=== PATIENT | female | born 1990 | race Hispanic/Latino ===

== ENCOUNTER 2019-05-01 22:51 | Emergency (ER) | payer MEDICAID, OTHER ==
[2019-05-01] MEDS ORDERED: SODIUM CHLORIDE 0.9% 1000ML 1,000 ML IV ONE (23:26)
[2019-05-01] MEDS ORDERED: DEXAMETHASONE SOD PHOSPHATE 10MG/ML 1ML VIAL ONE (23:28)
[2019-05-01] MEDS ORDERED: KETOROLAC TROMETHAMINE 30MG/ML ONE (23:28)
[2019-05-01] MEDS ORDERED: DiphenhydrAMINE HCL 50 MG/ML VIAL ONE (23:28)
[2019-05-01 23:50] LABS: APPEARANCE,URINE Clear (CLEAR); BILIRUBIN,URINE Negative (NEGATIVE); COLOR,URINE Yellow (YELLOW); GLUCOSE, URINE (UA) >=1000 mg/dL (NEGATIVE); KETONES,URINE Negative (NEGATIVE); LEUKOCYTE ESTERASE ,URINE Negative (NEGATIVE); NITRATE,URINE Negative (NEGATIVE); OCCULT BLOOD,URINE Negative (NEGATIVE); PH,URINE 5.5 (5.0-8.0); PROTEIN,URINE Negative (NEGATIVE)
[2019-05-02 00:03] LABS: BACTERIA,URINE None Seen /HPF (None Seen); RBC,URINE None Seen /HPF (0-1); WBC,URINE None Seen /HPF (0-1); YEAST,URINE BUDDING None Seen /HPF (None Seen)
[2019-05-02 00:04] LABS: SQUAMOUS EPITHELIAL CELL,UR Rare /HPF (0-2)
[2019-05-02 00:16] LABS: AMPHET/METH SCREEN,URINE NEGATIVE (NEGATIVE); BARBITURATE SCREEN, URINE NEGATIVE (NEGATIVE); BENZODIAZEPINES SCREEN,URINE NEGATIVE (NEGATIVE); CANNABINOID SCREEN,URINE NEGATIVE (NEGATIVE); COCAINE SCREEN,URINE NEGATIVE (NEGATIVE); OPIATE SCREEN,URINE NEGATIVE (NEGATIVE); PHENCYCLIDINE SCREEN,URINE NEGATIVE (NEGATIVE)
== END 2019-05-02 00:50 | disposition home or self-care (01) ==
LOC: EDH 22:51
DX: R51 Headache (principal); F32.9 Major depressive disorder, single episode, unspecified; F41.9 Anxiety disorder, unspecified
CPT/HCPCS: 80305; 81001; 81025; 82948; 96374; 96375; 99284; J1100; J1200; J1885; J7030

== ENCOUNTER → 2020-06-29 | Outpatient (CLI) | payer SELFPAY | END | disposition home or self-care (01) | LOC: RAH 09:50 | PROVIDERS: ATTEND Family Medicine | DX: R47.81 Slurred speech (principal); R29.810 Facial weakness; R53.1 Weakness; H54.61 Unqualified visual loss, right eye, normal vision left eye | CPT/HCPCS: 74220; 93880 ==

== ENCOUNTER → 2024-09-15 | Outpatient (CLI) | payer MEDICAID ==
--- NOTE | 2024-09-15 15:45 | HMCIMG ---
THYROID ULTRASOUND History: goiter Comparison: none Findings: The examination shows normal thyroid lobes except for simple cyst left thyroid upper pole 3 mm. No thyroid masses are seen. There are no nodules. Vascularity is unremarkable. No fluid collections are seen. IMPRESSION: Simple cyst lt thyroid.
== END | disposition home or self-care (01) ==
LOC: RAH 15:08
PROVIDERS: ATTEND Internal Medicine Cardiovascular Disease
DX: E04.1 Nontoxic single thyroid nodule (principal)
CPT/HCPCS: 76536

== ENCOUNTER 2024-09-25 07:55 | Day surgery (SDC) | payer MEDICAID ==
[2024-09-23 11:27] VITALS: BP 136/76; PULSE 87; RESP 18; TEMP 97.9
[2024-09-23 11:30] LABS: BASOPHILS # (AUTO) 0.06 K/uL (0.00-0.20); BASOPHILS % (AUTO) 0.7 % (0.0-5.0); EOSINOPHILS # (AUTO) 0.13 K/uL (0.00-0.70); EOSINOPHILS % (AUTO) 1.6 % (0.0-8.0); HEMATOCRIT 43.3 % (36-48); IMMATURE GRANULOCYTE ABSOLUTE 0.03 K/uL (0-1); LYMPHOCYTES # (AUTO) 2.1 K/uL (1.0-4.8); LYMPHOCYTES % (AUTO) 25.7 % (21.0-51.0); MEAN CORPUSCULAR HGB CONC 34.2 g/dL (32.0-36.0); MEAN CORPUSCULAR VOLUME 84.9 fL (79-99); MONOCYTES # (AUTO) 0.5 K/uL (0.1-1.0); MONOCYTES % (AUTO) 6.1 % (3.0-13.0); NEUTROPHILS # (AUTO) 5.3 K/uL (1.8-7.7); NEUTROPHILS % (AUTO) 65.5 % (40.0-77.0); PLATELET COUNT (AUTO) 211 K/uL (130-400); RED CELL DISTRIBUTION WIDTH 12.6 % (11.0-15.5); WHITE BLOOD COUNT (AUTO) 8.1 K/uL (4.8-10.8)
[2024-09-23 11:37] LABS: CREATININE 0.5 mg/dL (0.5-1.0); POTASSIUM 4.2 mmol/L (3.5-5.1)
[2024-09-23 11:39] LABS: INR 1.03 (0.85-1.15); PROTHROMBIN TIME 10.9 SEC (9.6-11.6)
[2024-09-23 11:40] LABS: PARTIAL THROMBOPLASTIN TIME 29.2 SEC (26.3-35.5)
--- NOTE | 2024-09-23 12:12 | EKG ---
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
[~2024-09-25] VITALS: Ht 154.9 cm; Wt 109.3 kg
[~2024-09-25 07:55] MED LIST: METF-446 PO
[2024-09-25 08:10] VITALS: BP 140/65; PULSE 81; RESP 17; TEMP 97.6
[2024-09-25] MEDS: LIDOCAINE HCL 2% VISCOUS 15 ML UDCUP PO ONE (08:59)
[2024-09-25] MEDS: 0.9%NACL 1000ML 1,000 ML IV SCH (08:59)
--- NOTE | 2024-09-25 09:34 | NUR ---
JUAN M ECHO PROB ADVANCED PT TOLERATED WELL NAD VSS
--- NOTE | 2024-09-25 09:38 | NUR ---
BUBBLE STUDY DONE AT THIS TIME NAD VSS
--- NOTE | 2024-09-25 09:39 | NUR ---
JUAN M DONE AT THIS TIME VSS NAD PT TOLERATED WELL.
[2024-09-25 09:45] VITALS: BP 134/77; PULSE 84; RESP 14; TEMP 97.5
[2024-09-25] MEDS: MIDAZOLAM HCL 1 MG/ML 2ML VIAL IVP ONE (09:50)
[2024-09-25] MEDS: FENTanyl CITRate PF 50 MCG/1 ML 2ML VIAL IVP ONE (09:51)
[2024-09-25 09:55] VITALS: BP 117/76; PULSE 84; RESP 14
[2024-09-25 10:05] VITALS: BP 119/74; PULSE 82; RESP 14
[2024-09-25 10:15] VITALS: BP 116/74; PULSE 83; RESP 15
[2024-09-25 10:25] VITALS: BP 116/72; PULSE 77; RESP 14
--- NOTE | 2024-09-25 10:25 | NUR ---
PT AND GIVEN VERBAL AND WRITTEN DISCHARGE INSTRUCTIONS. IV REMOVED SITE ASYMPTOMATIC. PT AND TOLD TO CALL [employer] WHEN READY. PT WALKED OUT WITH
--- NOTE | 2024-09-29 07:25 | HMCSR ---
APPROVED REPORT EXAM: Transesophageal echocardiogram with color flow Doppler. INDICATION ICD: Dyspnea R06.00 Reason For Test : Rule out Intracardiac Thrombus. PROCEDURE After obtaining informed consent, patient underwent transesophageal echo in the Day Patient Room 16. 15 mL 2% Viscous Lidocaine was given as a topical anesthetic prior to the administration of the consc ious sedation. Type of Sedation: Conscious Sedation Sedation was administered by Daevy Shepard RN. Sedation was achieved with refer to patient chart intravenously. Transesophageal probe was inserted and advanced into esophagus without difficulty by Dr. Martinez. Echo enhancement indication: R/O Septal defect. Echo enhancement agent administered: Agitated Saline. JUAN M was performed and images were obtained, probe was removed without complications. Throughout the procedure, the blood pressure, pulse oximetry, cardiac rhythm, and rate were monitored . The patient tolerated the procedure without adverse effects. Recovery from conscious sedation was une ventful and vital signs were stable. Left Ventricle Left ventricular cavity size is normal. There is normal LV segmental wall motion. There is normal lef t ventricular wall thickness. LVEF is 55-60%. No left ventricle thrombus noted on this study. Right Ventricle The right ventricle is normal size. The right ventricular systolic function is normal. Atria The left atrium size is normal. No thrombus is visualized in the left atrial appendage. No evidence of ASD by agitated saline. The right atrium size is normal. Aortic Valve The aortic valve is normal in structure and function. No aortic regurgitation is present. There is no aortic valvular stenosis. Mitral Valve The mitral valve is normal in structure and function. Mitral regurgitation is trace. There is no mitr al valve stenosis. Tricuspid Valve The tricuspid valve is normal in structure and function. There is no tricuspid valve regurgitation no jhonatan. Pulmonic Valve The pulmonary valve is normal in structure and function. There is no pulmonic valvular regurgitation. Great Vessels The aortic root is normal in size. Pericardium No pericardial effusion. Conclusion Left ventricular cavity size is normal. There is normal left ventricular wall thickness. LVEF is 55-60%. The right ventricle is normal size. The left atrium size is normal. No thrombus is visualized in the left atrial appendage. No evidence of ASD by agitated saline. The aortic valve is normal in structure and function. The mitral valve is normal in structure and function. The tricuspid valve is normal in structure and function. The aortic root is normal in size. No pericardial effusion.
== END 2024-09-25 10:35 | disposition home or self-care (01) ==
LOC: DAH 07:55
PROVIDERS: ATTEND Internal Medicine Cardiovascular Disease
DX: R06.00 Dyspnea, unspecified (principal); I34.0 Nonrheumatic mitral (valve) insufficiency; E11.9 Type 2 diabetes mellitus without complications; I10 Essential (primary) hypertension; R42 Dizziness and giddiness; R00.0 Tachycardia, unspecified; E66.9 Obesity, unspecified; Z68.41 Body mass index [BMI] 40.0-44.9, adult; Z79.899 Other long term (current) drug therapy; Z79.84 Long term (current) use of oral hypoglycemic drugs; Z86.73 Personal history of transient ischemic attack (TIA), and cerebral infarction without residual deficits; Z91.040 Latex allergy status; Z98.891 History of uterine scar from previous surgery; Z83.3 Family history of diabetes mellitus; Z79.01 Long term (current) use of anticoagulants
CPT/HCPCS: 80048; 84703; 85025; 85610; 85730; 36415; 93005; 93312; 82948; 93325; J3010; J7030; J2250; A4615; A4215; A4657; A4222; A4221; A4663; A4216; A4606; A4223 ×3; 99152; G0500

== ENCOUNTER → 2024-10-14 | Emergency (ER) | payer MEDICAID | LOC: EDH 20:21 | DX: S89.92XA Unspecified injury of left lower leg, initial encounter (principal); Z53.21 Procedure and treatment not carried out due to patient leaving prior to being seen by health care provider; X58.XXXA Exposure to other specified factors, initial encounter; Y93.89 Activity, other specified; Y92.89 Other specified places as the place of occurrence of the external cause; Y99.8 Other external cause status ==

== ENCOUNTER 2025-04-14 15:54 | Emergency (ER) | payer MEDICAID ==
[~2025-04-14] VITALS: Ht 152.4 cm; Wt 108.9 kg
[2025-04-14 17:09] LABS: ADD UA MICROSCOPIC YES; APPEARANCE,URINE CLEAR (CLEAR); GLUCOSE, URINE (UA) >=1000 mg/dL (NEGATIVE); LEUKOCYTE ESTERASE ,URINE NEGATIVE Leu/uL (NEGATIVE); NITRATE,URINE NEGATIVE (NEGATIVE); OCCULT BLOOD,URINE NEGATIVE (NEGATIVE)
[2025-04-14 17:10] LABS: SQUAMOUS EPITHELIAL CELL,UR RARE /HPF (0-2)
[2025-04-14 17:12] LABS: IMMATURE GRANULOCYTE ABSOLUTE 0.07 K/uL (0-1); NUCLEATED RED BLOOD CELLS 0.0 % (0.0-0.19); PLATELET COUNT (AUTO) 220 K/uL (130-400); RED BLOOD CELL COUNT(AUTO) 4.84 MIL/uL (4.00-5.50); RED CELL DISTRIBUTION WIDTH 13.2 % (11.0-15.5); WHITE BLOOD COUNT (AUTO) 9.3 K/uL (4.8-10.8)
[2025-04-14 17:20] LABS: CREATININE 0.6 mg/dL (0.5-1.0); GLOMERULAR FILTR. RATE CALC 122.0 mL/min (>90); GLUCOSE,RANDOM 318.0 mg/dL (70-105); SODIUM SERUM 134.0 mmol/L (136-145); UREA NITROGEN, BLOOD 6.0 mg/dL (7-18)
[2025-04-14 17:34] LABS: HCG,QUANTITATIVE 416.0 mIU/mL (0-5)
--- NOTE | 2025-04-14 17:44 | NUR ---
REPORTS SHE HAS AN UPCOMING APPT WITH KRYSTINA LORENZO AT [facility] [place] [facility]. LMP: 02/26/25.
[2025-04-14] MEDS: 0.9%NACL 1000ML 1,000 ML IV STA (18:08)
--- NOTE | 2025-04-14 18:08 | HMCIMG ---
STUDY US obstetrical, complete <14 weeks HISTORY Vaginal bleeding, TECHNIQUE Transabdominal imaging of the maternal pelvis and a presumed <14 week gestation with image documentation COMPARISON None provided FINDINGS Uterus and endometrium The uterus measures approximately 11.5 x 5.6 x 4.4 cm. The endometrial stripe measures up to 1.6 cm in thickness. Ovaries and adnexa The right ovary measures approximately 3.5 x 3.7 x 2.2 cm. The left ovary measures approximately 2.3 x 1.2 x 2.0 cm. No adnexal mass is identified. Cul-de-sac No free fluid is seen in the cul-de-sac. No intrauterine gestational sac or other definite intrauterine is identified on this transabdominal examination. No definite extrauterine gestational sac is seen. IMPRESSION * No intrauterine gestational sac is identified on this transabdominal pelvic ultrasound; in the setting of a positive test, the findings are indeterminate and could represent a very early intrauterine not yet sonographically visible, a failed , or an ectopic . Clinical correlation with quantitative beta-hCG and follow-up imaging as appropriate is advised. /[place]
--- NOTE | 2025-04-14 18:56 | ERN ---
ED Note History of Present Illness Stated Complaint: PREG ABD PAIN Chief Complaint: Abdominal Pain in Time Seen by MD: 15:56 Time Seen by Midlevel: 16:00 Dictation: 34-year-old female coming in with complaints of lower abdominal pain in vaginal bleeding upon wiping. Patient states she thinks she is about seven weeks , states she went to [facility] go on Saturday where they confirmed her . LMP is 02/26/2025. Patient also states today they had sexual intercourse in the pain started after. G3, P1, A1 Allergies: Coded Allergies: latex (Unverified Allergy, Unknown, 09/23/24) Home Meds Reported Medications Metformin HCl (Metformin HCl) 1,000 Mg Tablet, 1000 MG PO DAILY, TAB 09/23/24 Past Medical History Past Medical History: Diabetes-Type II Additional Past Medical Hx: LUPUS Surgical History: Pacer/AICD, Surgical History Other: BILAT EYE SX LMP: Feb 26, 2025 : 3 Para: 1 Aborts: 1 Review of System Dictation Constitutional: Negative for fever,chills, and weight loss Eyes: Negative for injury, pain,redness, and discharge ENT: Negative for injury,pain or swelling Cardiovascular: Negative for chest pain, palpitations, and edema Respiratory: Negative for shortness of breath, cough, and wheezing, Abdomen/GI: Lower abdominal pain in the left side Back: Negative for injury and pain : Negative for injury, bleeding and discharge MS/Extremity: Negative for injury and deformity Skin: Negative for rash, and discoloration Neuro: Negative for headache, weakness, numbness, tingling, and seizure Psych: Negative for suicide ideation, homicidal ideation, and hallucinations Review of Systems: was completed Initial Vital Sign VS Vital Signs Date Time Temp Pulse Resp B/P (MAP) Pulse Ox O2 Delivery O2 Flow Rate FiO2 04/14/25 15:56 97.5 98 18 137/92 98 Room Air 0 04/14/25 18:04 21 Physical Exam Dictation General: awake, alert, NAD Head/Face: Normocephalic, atraumatic Eyes: PERRL, EOMI, vision at baseline ENT: oral cavity clear, TMs clear, no signs of infection Neck: Trachea midline, supple, no nuchal rigidity Cardiovascular: RRR, normal S1/S2, No MRGs, no JVD Respiratory: CTAB, no respiratory distress, No rales or wheezes Abdomen: Soft, non-tender, non-distended, normal bowel sounds, no guarding or rebound. Skin: Warm, dry, normal turgor, no rash MS/Extremity: Pulses equal, no cyanosis, neurovascular intact, FROM Neuro: COAx4, GCS 15, strength 5/5, CN 2-12 intact, normal cerebellar exam, normal gait, Psych: Normal behavior, mood, and affect normal Results (Laboratory/Radiology) Laboratory/Radiology Laboratory Tests Test 04/14/25 16:20 04/14/25 17:01 Urine Color COLORLESS (YELLOW) Urine Appearance CLEAR (CLEAR) Urine pH 5.5 (5.0-8.0) Urine Specific [place] 1.029 (1.001-1.031) Urine Protein NEGATIVE mg/dL (NEGATIVE) Urine Glucose (UA) >=1000 mg/dL (NEGATIVE) H Urine Ketones NEGATIVE mg/dL (NEGATIVE) Urine Occult Blood NEGATIVE (NEGATIVE) Urine Nitrate NEGATIVE (NEGATIVE) Urine Bilirubin NEGATIVE mg/dL (NEGATIVE) Urine Urobilinogen 0.2 mg/dL (0.2-1.0) Urine Leukocyte Esterase NEGATIVE Cleo/uL Urine RBC 0-1 /HPF (0-1) Urine WBC 6-10 /HPF (0-1) H Urine Squamous Epithelial Cells RARE /HPF (0-2) Urine Bacteria RARE /HPF (None Seen) White Blood Count 9.3 K/uL (4.8-10.8) Red Blood Count 4.84 MIL/uL (4.00-5.50) Hemoglobin 13.9 g/dL (12.0-16.0) Hematocrit 40.7 % (36-48) Mean Corpuscular Volume 84.1 fL (79-99) Mean Corpuscular Hemoglobin 28.7 pg (27.0-33.0) Mean Corpuscular Hemoglobin Concent 34.2 g/dL (32.0-36.0) Red Cell Distribution Width 13.2 % (11.0-15.5) Platelet Count 220 K/uL (130-400) Mean Platelet Volume 12.8 fL (7.5-10.5) H Immature Granulocyte % (Auto) 0.8 % (0-1) Neutrophils (%) (Auto) 67.4 % (40.0-77.0) Lymphocytes (%) (Auto) 22.5 % (21.0-51.0) Monocytes (%) (Auto) 7.1 % (3.0-13.0) Eosinophils (%) (Auto) 1.4 % (0.0-8.0) Basophils (%) (Auto) 0.8 % (0.0-5.0) Neutrophils # (Auto) 6.3 K/uL (1.8-7.7) Lymphocytes # (Auto) 2.1 K/uL (1.0-4.8) Monocytes # (Auto) 0.7 K/uL (0.1-1.0) Eosinophils # (Auto) 0.13 K/uL (0.00-0.70) Basophils # (Auto) 0.07 K/uL (0.00-0.20) Absolute Immature Granulocyte (auto 0.07 K/uL (0-1) Nucleated Red Blood Cells 0.0 % (0.0-0.19) Sodium Level 134 mmol/L (136-145) L Potassium Level 3.8 mmol/L (3.5-5.1) Chloride Level 101 mmol/L (101-111) Carbon Dioxide Level 26 mmol/L (21-32) Blood Urea Nitrogen 6 mg/dL (7-18) L Creatinine 0.6 mg/dL (0.5-1.0) Glomerular Filtration Rate Calc 122 mL/min (>90) Random Glucose 318 mg/dL (70-105) H Total Calcium 8.6 mg/dL (8.5-10.1) Human Chorionic Gonadotropin, Quant 416 mIU/mL (0-5) H Labs Reviewed?: Yes Ultrasound Comment: [address] [id number] [place] [address] IMAGING REPORT Signed PATIENT: ANTHONY HAYDEN MR#: [id number] : 1990 SEX: F AGE: 34 LOCATION: [facility] ORDER 34 STATUS: REG ER REPORT#: [id number] SERVICE 32 REASON: vaginal bleeding, ORDERING PHYSICIAN: JAMIE DURAN CNP PROCEDURE: OB <14 - US OB <14 WEEKS STUDY US obstetrical, complete <14 weeks HISTORY Vaginal bleeding, TECHNIQUE Transabdominal imaging of the maternal pelvis and a presumed <14 week gestation with image documentation COMPARISON None provided FINDINGS Uterus and endometrium The uterus measures approximately 11.5 x 5.6 x 4.4 cm. The endometrial stripe measures up to 1.6 cm in thickness. Ovaries and adnexa The right ovary measures approximately 3.5 x 3.7 x 2.2 cm. The left ovary measures approximately 2.3 x 1.2 x 2.0 cm. No adnexal mass is identified. Cul-de-sac No free fluid is seen in the cul-de-sac. No intrauterine gestational sac or other definite intrauterine is identified on this transabdominal examination. No definite extrauterine gestational sac is seen. IMPRESSION * No intrauterine gestational sac is identified on this transabdominal pelvic ultrasound; in the setting of a positive test, the findings are indeterminate and could represent a very early intrauterine not yet sonographically visible, a failed , or an ectopic . Clinical correlation with quantitative beta-hCG and follow-up imaging as appropriate is advised. /[place] DICTATED BY: ZACK BRAVO Jr., MD DATE: 04/14/251906 ELECTRONICALLY SIGNED BY: ZACK BRAVO Jr., MD DATE: 04/14/251906 ED Course ED Course Orders Procedure Category Date Status Time Cbc With Differential LAB 04/14/25 Complete 16:33 Basic Metabolic Panel LAB 04/14/25 Complete 16:33 Hcg,Quantitative LAB 04/14/25 Complete 16:33 Urinalysis Profile LAB 04/14/25 Complete 16:33 Us Ob <14 Weeks US 04/14/25 Resulted 16:33 Culture Urine DENNIS 04/14/25 In Process 17:11 0.9%Nacl 1000ml (Ns PHA 04/14/25 Complete 1000ml) 17:47 Bedside Glucose CPOE 04/14/25 Transmitted Fingerstick 18:41 Current Medications Medications (Trade) Dose Ordered Sig/Amanda Route PRN Reason Start Time Stop Time Status Last Admin Dose Admin Sodium Chloride 1,000 ml @ 1,000 mls/hr Q1H STAT IV 04/14/25 17:47 04/14/25 18:46 DC 04/14/25 18:08 Vital Signs Date Time Temp Pulse Resp B/P (MAP) Pulse Ox O2 Delivery O2 Flow Rate FiO2 04/14/25 18:04 97.9 90 18 131/87 99 Room Air* 0 21 04/14/25 15:56 97.5 98 18 137/92 98 Room Air 0 Medical Decision Making MDM MDM: 34-year-old female A1 approximately seven weeks by LMP of 02/26/2025, presents with lower abdominal pain and vaginal bleeding noted only on wiping. Symptoms began after intercourse earlier today. Patient denies passage of clots or tissue were denies any fever, chills, nausea, vomiting, dizziness, syncope or any shoulder pain. She was seen by a PCP on Saturday and was confirmed. Past medical history significant only for diabetes. Exam only positive for mild lower pelvic discomfort reported abdomen is soft and nontender no guarding or rebound. No peritoneal signs., threatened miscarriage. CBC normal and CMP only remarkable for glucose of 318 after fluids blood sugar now is 248. HCG quantitative is 416, transvaginal ultrasound shows no IUP visualized this could be due to very early . HCG level is 416 is below discriminatory zone so absence of IUP on ultrasound does not exclude viable patient is clinically stable pain minimal and bleeding is light and intermittent. No red flag symptoms to suggest any ruptured ectopic no pe ritoneal signs no shoulder pain or hemodynamically instability. Discussed this with the patient educated she needs to follow up with her OBGYN and repeat her hCG and about 48 hours and repeat ultrasound. Educated on red flag symptoms of when to return back to the emergency room. Patient verbalized understanding, answered questions. Differential diagnosis: Ectopic, early , urinary tract infection Rationale: Tests considered and ordered secondary to shared decision making include: Previous outside records reviewed: Old ER visits. Risk of complication and/or morbidity or mortality of patient management: None Medications-Per medication reconciliation Need for hospitalization: Patient does not meet criteria for hospitalization. Need for emergency major/minor surgery: No There are no social concerns with this patient. Prescription drug management Prescriptions will include symptomatic care Patient's prior external medical records from other ER visits were reviewed by me as indicated. Prior testing and results from previous visits were reviewed. Prior tests were taken into account with medical decision making and resource utilization, independent historian/historians were used to obtain complete medical history. I independently interpreted the test that were performed, results were reviewed by me and considered findings on radiology if ordered. Medical management and examination interpretation discussions were had by me with other qualified healthcare professionals as indicated for the patient's care. DX & DISP Disposition: Discharge Departure Impression: Primary Impression: Vaginal bleeding affecting early Condition: Stable Additional Instructions: Tylenol to help your lower abdominal pain. If you start to develop severe abdo helen pain, heavy bleeding changing your pad every 2 hours or more, dizziness, shoulder pain, fever, vomiting or worsening symptoms return to the hospital. Follow up with the OBGYN in the next 48 hours to repeat your hormone levels and ultrasound. Referrals: SELF,REFERRAL (PCP) Time of Disposition: 18:55 I have reviewed the case, and I agree with, Diagnosis and Plan JAMIE DURAN [facility] Apr 14, 2025 18:56
[2025-04-14 19:01] VITALS: BP 131/87; PULSE 85; RESP 18; TEMP 97.9; O2SAT 98
== END 2025-04-14 19:02 | disposition home or self-care (01) ==
LOC: EDH 15:54
DX: O20.9 Hemorrhage in early pregnancy, unspecified (principal); O26.891 Other specified pregnancy related conditions, first trimester; R10.30 Lower abdominal pain, unspecified; O24.111 Pre-existing type 2 diabetes mellitus, in pregnancy, first trimester; E11.9 Type 2 diabetes mellitus without complications; Z79.84 Long term (current) use of oral hypoglycemic drugs; Z91.040 Latex allergy status; Z95.810 Presence of automatic (implantable) cardiac defibrillator; Z98.890 Other specified postprocedural states; Z3A.01 Less than 8 weeks gestation of pregnancy
CPT/HCPCS: 99284; 96360; 76801; 80048; 84702; 85025; 87086; 87186; 82948; 81001; 36415; J7030